=== PATIENT | female | born 1970 | race Caucasian/White ===

== ENCOUNTER 2017-09-13 17:01 | Emergency (ER) | payer SELFPAY ==
[~2017-09-13] VITALS: Ht 165.1 cm; Wt 105.4 kg
[2017-09-13 17:10] VITALS: BP 152/104
--- NOTE | 2017-09-13 17:45 | NUR ---
Dr. vicente bedside examined pt.
[2017-09-13] MEDS ORDERED: DICYCLOMINE HCL LIQUID 10 MG/5 ML UDC PO ONE (18:10)
[2017-09-13] MEDS ORDERED: ALUMINUM HYD/MAG/SIMETHICONE 30 ML UDC PO ONE (18:10)
[2017-09-13] MEDS ORDERED: LIDOCAINE VISCOUS 2% 20 ML UDC PO ONE (18:10)
--- NOTE | 2017-09-13 18:10 | NUR ---
Pt was taken to CT.
[2017-09-13] MEDS ORDERED: fentaNYL 0.05 MG/ML VIAL IM ONE (19:05)
--- NOTE | 2017-09-13 19:13 | NUR ---
STILL CO PAIN, MD AWARE, FENTANYL WAS ORDERED AND GIVEN IM.
[2017-09-13 19:23] VITALS: BP 150/89
== END 2017-09-13 19:23 | disposition home or self-care (01) ==
LOC: MED 17:01
DX: M54.2 Cervicalgia (principal); I10 Essential (primary) hypertension
CPT/HCPCS: 70450; 96372; 99284; J3010

== ENCOUNTER 2022-11-08 02:19 | Emergency (ER) | payer MEDICAID ==
[~2022-11-08] VITALS: Ht 167.6 cm; Wt 105.2 kg
[2022-11-08 02:24] VITALS: BP 165/97
--- NOTE | 2022-11-08 02:24 | NUR ---
to bed ambulatory
--- NOTE | 2022-11-08 02:25 | NUR ---
Patient BIB by friend from home. C/O neck pain x 3 days. Patient reported, had neck pain, difficulty to turn to left or right side, radiate to back of her head, no dizziness, denied injury, pain more when swallow.
--- NOTE | 2022-11-08 02:34 | NUR ---
Dr. Urrutia examining patient.
[2022-11-08] MEDS ORDERED: KETOROLAC 30 MG/ML VIAL IM ONE (02:40)
[2022-11-08] MEDS ORDERED: LORazepam 1 MG TAB PO ONE (02:40)
[2022-11-08] MEDS ORDERED: NAPR-54 PO (03:05)
[2022-11-08] MEDS ORDERED: CYCL-711 PO (03:05)
[2022-11-08 03:09] VITALS: BP 152/82
--- NOTE | 2022-11-08 03:09 | NUR ---
Patient discharged with v/s stable. Written and verbal after care instructions given and explained. Patient alert, oriented and verbalized understanding of instructions. Ambulatory with to car. All questions addressed prior to discharge. ID band removed. Patient advised to follow up with PMD. Rx of Flexeril and Naproxen given. Patient educated on indication of medication including possible reaction and side effects. Opportunity to ask questions provided and answered.
== END 2022-11-08 03:08 | disposition home or self-care (01) ==
LOC: MED 02:19
DX: S16.1XXA Strain of muscle, fascia and tendon at neck level, initial encounter (principal); I10 Essential (primary) hypertension; Z79.899 Other long term (current) drug therapy; X58.XXXA Exposure to other specified factors, initial encounter; Y93.89 Activity, other specified; Y92.89 Other specified places as the place of occurrence of the external cause; Y99.8 Other external cause status
CPT/HCPCS: 96372; 99283; J1885

== ENCOUNTER 2024-04-09 17:43 | Emergency (ER) | payer MEDICAID, OTHER ==
[~2024-04-09] VITALS: Ht 167.6 cm; Wt 104.3 kg
[~2024-04-09 17:43] MED LIST: CYCL-711 PO; NAPR-337 PO
[2024-04-09 17:48] VITALS: BP 203/99; PULSE 89; RESP 16; TEMP 97.1; O2SAT 97
[2024-04-09 21:00] VITALS: BP 203/99; PULSE 89; RESP 16; TEMP 97.1; O2SAT 97
== END 2024-04-09 21:00 | disposition left against medical advice (07) ==
LOC: MED 17:43
DX: R51.9 Headache, unspecified (principal); Z53.21 Procedure and treatment not carried out due to patient leaving prior to being seen by health care provider
CPT/HCPCS: 81025

== ENCOUNTER 2024-04-12 05:58 | Emergency (ER) | payer OTHER ==
[~2024-04-12] VITALS: Ht 167.6 cm; Wt 111.6 kg
[2024-04-12 06:14] VITALS: BP 195/102; PULSE 85; RESP 14; TEMP 97.3; O2SAT 99
[2024-04-12] MEDS: IBUPROFEN 600 MG TAB PO ONE (06:53)
[2024-04-12 06:54] VITALS: BP 159/91; PULSE 78; RESP 18; TEMP 98; O2SAT 98
== END 2024-04-12 06:52 | disposition home or self-care (01) ==
LOC: MED 05:58
DX: I10 Essential (primary) hypertension (principal); Z79.899 Other long term (current) drug therapy
CPT/HCPCS: 99282

== ENCOUNTER 2024-08-07 18:08 | Emergency (ER) | payer OTHER ==
[~2024-08-07] VITALS: Ht 170.2 cm; Wt 112.0 kg
[2024-08-07 18:18] VITALS: BP 175/82; PULSE 84; RESP 18; TEMP 97.6; O2SAT 97
[2024-08-07 20:24] VITALS: O2SAT 99
[2024-08-07] MEDS ORDERED: CEPH-588 PO (20:28)
[2024-08-07] MEDS ORDERED: IBUP-2213 PO (20:28)
[2024-08-07] MEDS ORDERED: BACI-418 TP (20:28)
[2024-08-07] MEDS ORDERED: DICL100G32 TP (20:28)
== END 2024-08-07 20:33 | disposition home or self-care (01) ==
LOC: MED 18:08
DX: L03.317 Cellulitis of buttock (principal); M25.561 Pain in right knee; M25.551 Pain in right hip; R03.0 Elevated blood-pressure reading, without diagnosis of hypertension; Z79.899 Other long term (current) drug therapy
CPT/HCPCS: 99283